=== PATIENT | female | born 1990 | race Caucasian/White ===

== ENCOUNTER 2024-02-17 08:24 | Emergency (ER) | payer MEDICAID, OTHER ==
[~2024-02-17] VITALS: Ht 157.5 cm; Wt 72.6 kg
[2024-02-17 08:32] VITALS: BP_SYST 115; PULSE 87; RESP 18; TEMP 98.3; O2SAT 98
[2024-02-17] MEDS: ONDANSETRON 4 MG ODT TAB PO ONE (09:48)
[2024-02-17] MEDS: KETOROLAC TROMETHAMINE 60 MG/2 ML VIAL IM ONE (09:48)
[2024-02-17] MEDS: KETOROLAC TROMETHAMINE 30 MG VIAL IVP ONE (09:48)
[2024-02-17] MEDS: ONDANSETRON HCL 4 MG/2 ML VIAL IVP ONE (09:49)
[2024-02-17 10:28] LABS: BASOPHILS % (AUTO) 0.2 % (0.0-2.0); EOSINOPHILS # (AUTO) 0.1 K/uL (0.0-0.4); EOSINOPHILS % (AUTO) 0.5 % (0.0-4.0); HEMATOCRIT 38.5 % (36-48); HEMOGLOBIN 12.8 g/dL (12.0-16.0); LYMPHOCYTES # (AUTO) 1.1 K/uL (1.0-5.5); LYMPHOCYTES % (AUTO) 7.4 % (20.5-51.5); MEAN CORPUSCULAR HEMOGLOBIN 31 pg (27-31); MEAN CORPUSCULAR HGB CONC 33 % (32-36); MEAN CORPUSCULAR VOLUME 92 fL (79.0-98.0); MONOCYTES # (AUTO) 0.5 K/uL (0.0-1.0); MONOCYTES % (AUTO) 3.1 % (1.7-9.3); NEUTROPHILS # (AUTO) 12.8 K/uL (1.8-7.7); NEUTROPHILS % (AUTO) 88.8 % (40.0-70.0); PLATELET COUNT (AUTO) 261 K/uL (130-430); RED BLOOD CELL COUNT(AUTO) 4.19 MIL/uL (4.2-6.2); RED CELL DISTRIBUTION WIDTH 14.4 % (9.0-15.0); WHITE BLOOD COUNT (AUTO) 14.4 K/uL (4.8-10.8)
[2024-02-17 10:30] LABS: CALCIUM 8.5 mg/dL (8.4-11.0); CREATININE 0.75 mg/dL (0.55-1.30); POTASSIUM 3.4 mmol/L (3.5-5.1)
[2024-02-17 10:34] LABS: ALBUMIN 3.3 g/dL (3.4-4.8); BILIRUBIN,DIRECT 0.3 mg/dL (0.0-0.3); TOTAL BILIRUBIN 0.9 mg/dL (0.0-1.0)
[2024-02-17] MEDS ORDERED: MORPHINE 4 MG INJ. 4 MG/ML VIAL IM ONE (12:30)
[2024-02-17] MEDS ORDERED: HYDR-3917 PO (12:38)
[2024-02-17] MEDS ORDERED: AUG875 PO (12:38)
[2024-02-17] MEDS: AMOXICILLIN/POTASSIUM CLAV 875 MG TABLET PO ONE (12:47)
[2024-02-17] MEDS: HYDROmorphone 1 MG/ML INJ. CARTRIDGE IM ONE (12:47)
[2024-02-17 13:05] VITALS: BP_SYST 115; PULSE 87; RESP 18; TEMP 98.3; O2SAT 98
[2024-02-17 13:49] LABS: BILIRUBIN,URINE 2+ (NEGATIVE); BLOOD, URINE NEGATIVE (NEGATIVE); CLARITY/URINE CLEAR (CLEAR); COLOR,URINE YELLOW (YELLOW); GLUCOSE,URINE NEGATIVE (NEGATIVE); KETONES,URINE 3+ (NEGATIVE); LEUKOCYTE ESTERASE ,URINE TRACE (NEGATIVE); NITRITE, URINE NEGATIVE (NEGATIVE); PROTEIN URINE TRACE (NEGATIVE)
[2024-02-17 14:13] LABS: RBC,URINE 0-3 /HPF (0-3)
[2024-02-17 14:14] LABS: BACTERIA,URINE FEW /HPF (None Seen)
== END 2024-02-17 13:04 | disposition home or self-care (01) ==
LOC: SED 08:24
DX: K57.92 Diverticulitis of intestine, part unspecified, without perforation or abscess without bleeding (principal); R10.13 Epigastric pain; R11.0 Nausea; F17.200 Nicotine dependence, unspecified, uncomplicated; Z79.899 Other long term (current) drug therapy
CPT/HCPCS: 99285; 74176; 76705; 80076; 80048; 81001; 83690; 85025; 36415; 81025; 96372; 82948; 81000; 81015; Q0162; J1885; J1170